=== PATIENT | male | born 1965 | race Caucasian/White ===

== ENCOUNTER 2023-08-21 11:47 | Observation (INO) | payer OTHER, SELFPAY ==
[2023-08-21] VITALS (7 sets, daily range): BP systolic 127–164; BP diastolic 89–121; PULSE 52–81; RESP 16–20; TEMP 36.1–37.1; O2SAT 91–100; BMI 23.6; BMI 23.3
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
--- NOTE | 2023-08-21 12:38 | CM.ED ---
Social Work SW consulted regarding possible SNF placement. SW introduced self and role to patient and sister, Jodee, present in the room. Pt is only oriented to self and could not provide information to SW. Pt's sister reports he was just discharged from [facility] after a week. She reports [facility] did recommend SNF but family thought they could care for him with home health. [facility] told family they could do 2 days a week of PT and recommended that he needed a higher level of care. Sister reports extensive testing was done with no significant findings. Pt reportedly had tested positive for arsenic in 2020 after a brief marriage, it is suspected that he has arsenic poisoning which is causing his decline. Pt has not been mobile at home and has difficulty sitting up. Sister showed a video of patient from 2 weeks ago in which patient was fully functional and reportedly was walking a mile a day at that time. 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 Pt's insurance will likely require a precert for SNF placement. Physician is working on getting patient's records sent from [facility] to avoid unnecessary testing. Pt's sister would like patient to receive as much therapy as possibly and is interested in the Rehab Unit at [facility]. SW will provide a SNF list according to patient's insurance and geographic location in case more choices are needed. SW left a voicemail for Rehab intake to refer and discuss availability. Pt may need some additional therapy notes depending on [facility] records. SW to follow pt for discharge needs. Liliam Vinson SUPERVISOR ASSEMBLY, EVENT REPRESENTATIVE
--- NOTE | 2023-08-21 14:51 | ED.RN ---
clem and waiting on records from [place], unable to admitt to skilled facility without unless we do workup here, which family initally wanted to avoid putting him through if possible. discussed with family that placement would not happen today d/t lack of documentation for facilities to review since we have not recieved records from [place] at this time. family agreeable to do basic workup and have pt admitted so that he can get pt/ot evals and determine medically stable for prospective placement tomorrow. new orders recieved.
--- NOTE | 2023-08-21 15:25 | RAD_ITS ---
STUDY: X-RAY CHEST REASON FOR EXAM: Male, 58 years old. Cough TECHNIQUE: Single AP portable view of the chest. COMPARISON: None. FINDINGS: The lungs are clear and expanded. There is no demonstrated pleural abnormality. Normal size heart. Normal mediastinum and lisa. Normal visualized pulmonary arteries. Normal visualized aortic arch and descending thoracic aorta. Normal visualized thoracic spine. There is degenerative osteoarthritis of the bilateral shoulders. There is no demonstrated abnormality of the visualized soft tissue structures of the upper abdomen. RAD/Chest 1 View (Portable) IMPRESSION: Normal x-ray examination of the chest. Electronically Signed: Tanner Lugo MD at 15:44 EST ,
[2023-08-21 15:57] LABS: Absolute Lymphocyte Count 1.63 X10^3/uL (0.83-4.51); Absolute Neutrophil Count 5.9 X10^3/uL (2.0-7.7); Basophil# 0.08 X10^3/uL; Basophil% 0.9 % (0-1); Eosinophil# 0.23 X10^3/uL; Eosinophils% 2.6 % (0-5); Hematocrit 47.6 % (40-54); Hemoglobin 15.4 g/dL (13.0-16.5); Lymphocyte # 1.63 X10^3/ul (0.83-4.51); Lymphocyte % 18.5 % (19-41); Mean Corp Hgb Conc 32.4 g/dL (32-36); Mean Corpuscular Hgb 27.9 pg (27.0-32.0); Mean Corpuscular Volume 86.4 fL (80-94); Mean Platelet Vol. 9.4 fl (6.2-12.0); Monocyte# 0.97 X10^3/uL; NRBC Flagged by Analyzer 0 % (0-5); Neutrophil # 5.85 X10^3/uL (2.7-7.7); Neutrophil % 66.5 % (47-70); Platelet Count 408 K/mm3 (150-450); RBC Distribution Width CV 12.4 % (11.6-14.6); RBC Distribution Width SD 39.3 fl (35.1-43.9); Red Blood Count 5.51 M/mm3 (4.6-6.2); White Blood Count 8.8 K/mm3 (4.4-11.0)
[2023-08-21 16:17] LABS: ALB/GLOB Ratio 0.9 RATIO (0.9-2.4); AST(SGOT) 22 U/L (15-37); Alanine Aminotransfer ALT/SGPT 25 U/L (16-61); Albumin, Serum 3.4 g/dL (3.2-5.0); Alkaline Phosphatase 120 U/L (45-117); Anion Gap 3 (5-15); BUN 15 mg/dL (7-18); BUN/Creat Ratio 14.9 RATIO (10-20); Calcium,Total 9.5 mg/dL (8.5-10.1); Chloride 105 mmol/L (98-107); Creatinine, Serum 1.01 mg/dL (0.70-1.30); EST Glomerular Filtration Rate 81 mL/min (>60); Est Glom Filt Rate - Afr Amer 98 mL/min (>60); Estimated Creatinine Clearance 88.57 ml/min; Globulin 3.9 g/dL (2.2-4.2); Glucose 102 mg/dL (74-106); Potassium 4.3 mmol/L (3.5-5.1); Protein, Total 7.3 g/dL (6.4-8.2); Sodium Level 139 mmol/L (136-145)
--- NOTE | 2023-08-21 16:47 | CM.ED ---
Social Work SW notified that [facility] called regarding a referral from [facility] and are coming to meet with family. Family met with hospice and is not interested in hospice, only palliative care at this time. SW is unsure what the recommendation/prognosis is from [facility]. [facility] was unable to fax records and notified medical staff that they cannot due to not being processed by medical records yet. Pt will need PT/OT evaluations to determine recommendation and then insurance precert. Pt's sister reports patient was very active less than 2 weeks ago and patient has a strong will to recover. SW will follow for needs and support as needed. Liliam Vinson VAMP WETTER, VICE PRESIDENT FOR INSTRUCTION
--- NOTE | 2023-08-21 17:10 | PCM.HP.STD ---
HPI - General General Date of Admission: 08/21/23 Date of Service: 08/21/23 Chief Complaint: Family unable to take care of patient at home HPI Narrative ROMAIN MCGRATH, is a 58 M who presented to the emergency department at [facility] on 08/21/2023 due to the family being unable to take care of the patient at home. Patient was recently discharged from [facility] last night. The patient has a history of arsenic poisoning and has had significant functional and cognitive decline since that point in time. He underwent extensive evaluation while hospitalized there related to his functional decline without any significant findings and was seen by hospice and palliative care. Patient was offered hospice however patient and family declined and wanted to continue with palliative care. He was discharged home but family got him home and he is requiring significant amount of [id number] care which they are unable to provide at this time so they brought him to the emergency department for placement. Vital signs on presentation demonstrated temperature of 97, heart rate 78, blood pressure initially was 160/101 with repeat at 120/92, respiratory rate is 18 oxygen saturations are 100% on room air. His CBC is unremarkable. His chemistry panel is unremarkable except for mild elevation in total bilirubin at 1.4. Baseline bilirubin is unknown. Chest x-ray has no acute findings. Extensive discussion with family. 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 He had a fall and ended up admitted to [facility] and became quite debilitated. They felt they could take care of him going home but unfortunately nursing has signed off and they are not able to supply any aids. He has not yet been evaluated by physical or occupational therapy however they would like him to get daily therapy at least 5 days a week. They have talked to an outpatient facility and if they could get him there they would be willing to do physical therapy 5 days a week but family does not feel they can even get him there at this time. He was cleared for a soft thin liquid diet by speech therapy prior to discharge. Their initial goals were to try to get him into acute rehab but after discussion but after explaining he would need to tolerate 3 hours of physical/occupational/speech therapy daily and they did not feel he would be able to tolerate this. We then talked about skilled facility placement and they would like to pursue this if possible however they are aware that his insurance company may decline this depending on his participation and capability for improvement after they review the information. They would like to pursue possible SNF placement so we will admit him as observation as there are no acute medical issues. They would also like a second opinion from neurology so we will have them consulted and try to obtain records from [facility] however we have thus far been unsuccessful. [facility] Medical History (Updated 08/21/23 @ 17:[address] Kira Bennett, ) Arsenic encephalopathy HTN (hypertension) no significant family history unable to obtain Social History (Updated 08/21/23 @ 17:[address] Kira Bennett, ) household members: family housing: house Smoking Status: Never smoker alcohol intake: never substance use type: does not use ROS Review of Systems ROS Unobtainable: due to mental condition Vital Signs Vital Signs Vital Signs: 08/21/23 11:49 08/21/23 14:27 08/21/23 16:52 Temperature 97 F L Temperature Source Temporal Pulse Rate 78 79 52 L Respiratory Rate 18 16 18 Blood Pressure 160/101 H 129/92 H 134/89 H Blood Pressure Mean 120 104 104 Pulse Ox 100 99 98 Oxygen Delivery Method Room Air Room Air Room Air Weight Weight: 79.1 kg Body Mass Index (BMI) 23.6 Physical Exam Const alert, no apparent distress, average body habitus and well nourished; Negative for healthy appearing Constitutional Narrative: Middle-aged, white male, who is able to interact some but not consistently, does follow commands but unable to vocalize consistently any complaints or issues, appears nontoxic, family at bedside General Appearance: cooperative HEENT normocephalic, head/scalp atraumatic and moist oral mucous membranes HEENT Narrative: Mallampati 2, no thrush Resp normal respiratory effort, no retractions, no use of accessory muscles and clear to auscultation bilaterally Auscultation: Negative for rales, rhonchi or wheezes Cardio regular rate, regular rhythm, S1 normal heart sound, S2 normal heart sound, no murmurs, no rub, no gallops and no clicks GI normal to inspection, nondistended, normoactive bowel sounds, soft to palpation and non-tender Extremity no clubbing, cyanosis or edema Extremity Narrative: Pedal pulses are 2+, radial pulses are 2+ Neuro moves all extremities Neuro Narrative: Patient is not able to consistently vocalize any meaningful interaction, intermittently follows commands, able to move all extremities, does appear to have some rigidity in his lower extremities however I am not clear if this is effort related or if he has increased tone, reflexes are hyperactive bilateral lower extremities and upper extremities Sensorium / Orientation: awake and alert Speech: Negative for speech normal Psych Psych Narrative: Affect is flat and difficult to obtain mood due to limited capabilities of interaction Results Lab / Micro Data 08/21/23 15:46 08/21/23 15:46 Labs: Laboratory Results - last 24 hr 08/21/23 15:46: WBC 8.8, RBC 5.51, Hgb 15.4, Hct 47.6, MCV 86.4, MCH 27.9, MCHC 32.4, RDW Std Deviation 39.3, RDW Coeff of Cari 12.4, Plt Count 408, MPV 9.4, Immature Gran % (Auto) 0.500, Neut % (Auto) 66.5, Lymph % (Auto) 18.5 L, [place] % (Auto) 11.0 H, Eos % (Auto) 2.6, Baso % (Auto) 0.9, Absolute Neuts (auto) 5.9, Absolute Lymphs (auto) 1.63, Nucleated RBC % 0, Sodium 139, Potassium 4.3, Chloride 105, Carbon Dioxide 31.0, Anion Gap 3 L, BUN 15, Creatinine 1.01, Estim Creat Clear Calc 88.57, Est GFR (MDRD) Af Amer 98, Est GFR (MDRD) Non-Af 81, BUN/Creatinine Ratio 14.9, Glucose 102, Calcium 9.5, Total Bilirubin 1.40 H, AST 22, ALT 25, Alkaline Phosphatase 120 H, Total Protein 7.3, Albumin 3.4, Globulin 3.9, Albumin/Globulin Ratio 0.9 Imaging Radiology Impression Chest X-Ray 08/21/23 15:25 IMPRESSION: Normal x-ray examination of the chest. Electronically Signed: Tanner Lugo MD at 15:44 EST , Assessment & Plan Assessment/Plan (1) Failure to thrive: (2) Debility: (3) Encephalopathy: (4) Dysphagia: PLAN: Plan Acute on chronic encephalopathy -Acute etiology is not known patient has history of arsenic poisoning -Recent extensive hospitalization at [facility] for the above -Extensive testing and consultations were performed and awaiting requested information including neuro consultations and imaging/EEG -Heavy metal panel at [facility] is still pending -Consult [facility] teleneurology Dysphagia -Speech therapy was following at [facility] -Was on a mechanical soft thin liquid diet at discharge -Had modified barium swallow prior to discharge -Will continue modified diet and consult speech therapy Failure to thrive/debility/fall -PT/OT consultation -Case management/social work consultation -Family is well aware that he will not qualify for inpatient rehab services but would like to pursue SNF -They are aware that he may not qualify for SNF based on his level of participation with physical and Occupational Therapy here and insurance review History of hypertension -Patient is not on any current medications -Monitor blood pressure Onychomycosis -Hold terbinafine and restart at discharge DVT prophylaxis -Lovenox subcu daily CODE STATUS -Full code is verified on admission Charges/Coding Visit Charges Inpatient E&M: 75125 Init Hosp L2
--- NOTE | 2023-08-21 20:41 | CM.ED ---
Social Work Patient's sister, Jodee Sagastume, is HCPOA and will bring advance directive documents when able. Liliam Vinson WATER MECHANIC, CLERK TELEVISION PRODUCTION
[2023-08-21] MEDS: MELATONIN 3 MG TABLET PO (22:45)
[2023-08-22] MEDS: DiphenhydrAMINE 50 MG/ML Syringe 25 MG IV (00:27)
[2023-08-22] MEDS: 0.9% Saline Lock 10 ML Syringe IV (00:27)
[2023-08-22 00:38] VITALS: BP 136/93; PULSE 87; RESP 16; TEMP 36.8; O2SAT 100
[2023-08-22 06:30] VITALS: BP 137/96; PULSE 88; RESP 16; TEMP 36.6; O2SAT 98
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
[2023-08-22] MEDS: Enoxaparin 40 MG/0.4 ML Syringe SC (10:23)
--- NOTE | 2023-08-22 12:30 | CASEMGMT ---
Addendum entered by Kait Young 08/22/23 17:16: Social Work Pt has been denied for Inpatient Rehab. Referral to TCU at 1440. Determination not made at this time. Referral sent to [facility]. Not in network with pt insurance. A new SNF list printed to indicate in network facilities from the [facility] [facility] and given to pt's caregiver who is in the room. Caregiver will give list to pt's sister and request that additional choices be made. SW to follow up tomorrow. Plan: SNF, pending choice and referrals. RONNELL Bo Original Note: Social Work SW?to room to meet with patient and sister Jodee Sagastume for initial transition planning/care coordination?assessment.?SW?introduced self and role at [facility].? Pt sitting in chair and alert but not responding to SW questions. Assessment completed with pt's sister.? Care providers, pharmacy, and demographics verified. PCP: Dr. Gavin Diggs Specialists: Alex - neurologist Preferred Pharmacy: [facility] Insurance: MMO Prescription Benefit:? yes Living Will/HPOA:?yes, pt has a HCPOA on file naming his sister Jodee Sagastume. Pt has a living will and sister agreeable to bring this in. LNOK: sister Jodee Sagastume Living Arrangements: Pt lives in a two story duplex with a first floor setup. 4 steps to get into the home with no ramp. Pt has been requiring help with ADLs and IADLs and sister has been assisting. Sister lives in an adjoining apartment. Pt also has a roller printing supervisor that stays with him 27/01. Transportation:?sister DME: ? hospital bed, walker, shower chair. Sister reports a transport chair has been ordered but has not been delivered PLAN: Pt's sister has been caring for pt since May 2021. Pt was diagnosed with dementia in 2019. Pt was in [facility] for 8 days prior to admission and sister reports prior to this pt was A&O x1 and could have a conversation but with great effort. Since hospitalization, pt is not responding. Pts sister states ultimate goal is to get pt home and she will care for him and she would like outpt therapy at [facility]. Sister is realistic at this time that pt cannot return home and need rehabilitation. Pt was given a list of options in the ED. First preference is Inpatient Rehab, second is TCU and third is [facility]. Referral made to Inpatient Rehab. SW will await determination. RONNELL Bo
[2023-08-22 14:32] VITALS: BP 129/97; PULSE 98; RESP 18; TEMP 36.6; O2SAT 95
--- NOTE | 2023-08-22 15:31 | CASEMGMT ---
Discharge Planning Referral sent to [facility] via [facility]. Arcelia Ren, Discharge Planning Asst.
--- NOTE | 2023-08-22 17:00 | CASEMGMT ---
Social Work Pt's sister provided a copy of HCPOA naming herself as pt's decision maker. Copy on pt chart. Pt has completed a living will. SW requested sister also bring this document in. RONNELL Bo
[2023-08-22 20:00] VITALS: O2SAT 95
[2023-08-22 21:12] VITALS: PULSE 85; RESP 18; TEMP 36.8; O2SAT 95
[2023-08-22] MEDS: Acetaminophen 325 MG Tablet 650 MG PO (21:53)
[2023-08-22] MEDS: MELATONIN 3 MG TABLET PO (21:53)
[2023-08-22 21:59] VITALS: BP 163/119
[2023-08-23] MEDS: Ibuprofen 600 MG Tablet PO ×3 (03:05→22:19)
[2023-08-23 03:14] VITALS: BP 145/98; PULSE 90; RESP 16; TEMP 36.6; O2SAT 96
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
[2023-08-23 07:22] VITALS: O2SAT 95
[2023-08-23 10:18] VITALS: BP 129/84; PULSE 61; RESP 18; TEMP 35.9; O2SAT 93
[2023-08-23] MEDS: 0.9% Saline Lock 10 ML Syringe IV ×2 (10:34→18:45)
[2023-08-23] MEDS: 0.9% Normal Saline (1000mL) 1,000 ML 150 ML IV (10:34)
[2023-08-23] MEDS: Enoxaparin 40 MG/0.4 ML Syringe SC (10:35)
[2023-08-23] MEDS: Ensure Plus High Protein 120 ML LIQUID PO ×2 (13:32→18:45)
[2023-08-23 14:35] VITALS: BP 133/99; PULSE 71; RESP 16; TEMP 36.3; O2SAT 100
--- NOTE | 2023-08-23 15:27 | CASEMGMT ---
Addendum entered by Xenia Carpenter 08/23/23 15:55: Social Work SW sent a referral to [facility] via [facility]. ALEXI Woo Original Note: Social Work Pt's sister Jodee here, SW spoke w/her about SNF choices, as their second choice[facility] is not in network. [facility] is their second choice if TCU cannot take pt. SW explained we will make referral and follow up Friday. Jodee also brought pt's LW, SW made a copy and placed it on the chart. ALEXI Woo
[2023-08-23 20:04] VITALS: BP 119/83; PULSE 71; RESP 18; TEMP 36.6; O2SAT 95
[2023-08-24 02:06] VITALS: BP 140/89; PULSE 89; RESP 18; TEMP 36.7; O2SAT 94
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
[2023-08-24] MEDS: 0.9% Normal Saline (1000mL) 1,000 ML 150 ML IV (09:47)
[2023-08-24] MEDS: Ensure Plus High Protein 120 ML LIQUID PO ×2 (09:47→17:57)
[2023-08-24] MEDS: Enoxaparin 40 MG/0.4 ML Syringe SC (09:48)
[2023-08-24] MEDS: 0.9% Saline Lock 10 ML Syringe IV ×2 (09:48→17:55)
[2023-08-24 09:54] VITALS: BP 146/97; PULSE 88; RESP 18; TEMP 36.5; O2SAT 99
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
[2023-08-24 17:30] VITALS: BP 136/93; PULSE 84; RESP 18; TEMP 36.8; O2SAT 98
[2023-08-24] MEDS: Senna/Docusate Sodium 1 Tablet 2 TABLET PO (18:05)
[2023-08-24 21:37] VITALS: BP 136/94; PULSE 70; RESP 18; TEMP 36.6; O2SAT 98
[2023-08-24] MEDS: Ibuprofen 600 MG Tablet PO (21:40)
[2023-08-25] MEDS: hydrOXYzine 50 MG/ML Vial 100 MG IM (02:17)
[2023-08-25 03:33] VITALS: BP 109/72; PULSE 66; RESP 18; TEMP 36.5; O2SAT 98
[2023-08-25 11:21] VITALS: BP 139/95; PULSE 91; RESP 18; TEMP 36.4; O2SAT 100
--- NOTE | 2023-08-25 11:38 | CASEMGMT ---
Addendum entered by Arcelia Ren 08/25/23 12:36: [facility] declined referral. Arcelia Ren, Discharge Planning Asst. Original Note: Discharge Planning Referral sent via [facility] to [facility]. Arcelia Ren, Discharge Planning Asst.
--- NOTE | 2023-08-25 12:38 | CASEMGMT ---
Discharge Planning Referral sent via [facility]Port to [facility]. Arcelia Ren, Discharge Planning Asst.
[2023-08-25] MEDS: Enoxaparin 40 MG/0.4 ML Syringe SC (13:24)
[2023-08-25] MEDS: Ibuprofen 600 MG Tablet PO (13:32)
[2023-08-25] MEDS: 0.9% Normal Saline (1000mL) 1,000 ML 75 ML IV (14:10)
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
[2023-08-25 16:00] VITALS: BP 149/95; PULSE 82; RESP 18; TEMP 36.9; O2SAT 97
[2023-08-25] MEDS: Thiamine Hydrochloride 100 MG Tablet PO (16:15)
[2023-08-25 17:04] LABS: Vitamin B12 465 pg/mL (211-911)
--- NOTE | 2023-08-25 17:30 | CASEMGMT ---
Social Work - Discharge Planning Spoke with Riri in [facility] and patient is declined for admission. Received notice from [facility] and patient declined based on not the right level of care. Met with patient's sister to update. Reviewed SNF list. Next choices are [facility] and [facility]. Sister reports has been in conversations with Palliative Care as a supplement to patient's care. Sister reports has been thinking about having patient back at home, as this would make patient happier, but concerned whether would have enough care. Broached hospice care for patient, though reinforced that hospice at home does not provide around the clock care. Offered to discuss a hospice consult with provider, if sister wants to hear directly from hospice on what can provide for patient. Sister reports to have a 24 hour caregiver hired for patient, but sister has some frustrations with this arrangement. After talking through various options, the sister reports desire to continue with trying to go with skilled care and will continue to talk patient's needs over with family. Sister asks for any resources for wheelchair van, and for private duty care. Updated Discharge strategic planning director to new SNF choices. Referrals made. [facility] declined patient. [facility] pending. Met with sister, provided information on [place] transportation, as well as a private duty list. Updated on referrals made to SNF's today. In light of multiple denials so far, sister okay with referrals being sent to [facility], and to [facility]. Sister expresses concern as to if all facilities on list deny the patient. Emotional support offered to the sister. Educated that facility search could be extended beyond 20 miles of geographical region. Plan: Working towards SNF. Referral pending at [facility]; Referrals to be sent to [facility] and [facility]. Social Work following. -AMANDA Espinoza
[2023-08-25 20:53] VITALS: BP 143/96; PULSE 93; RESP 18; TEMP 36.6; O2SAT 96
[2023-08-26] MEDS: 0.9% Normal Saline (1000mL) 1,000 ML 75 ML IV ×2 (03:16→16:12)
[2023-08-26 03:45] VITALS: BP 134/93; PULSE 78; RESP 16; TEMP 36.8; O2SAT 96
[2023-08-26] MEDS: Ibuprofen 600 MG Tablet PO (03:49)
[2023-08-26 07:52] LABS: Absolute Lymphocyte Count 1.63 X10^3/uL (0.83-4.51); Absolute Neutrophil Count 3.9 X10^3/uL (2.0-7.7); Basophil# 0.06 X10^3/uL; Basophil% 0.9 % (0-1); Eosinophil# 0.31 X10^3/uL; Eosinophils% 4.7 % (0-5); Hematocrit 43.8 % (40-54); Hemoglobin 14.1 g/dL (13.0-16.5); Lymphocyte # 1.63 X10^3/ul (0.83-4.51); Lymphocyte % 24.7 % (19-41); Mean Corp Hgb Conc 32.2 g/dL (32-36); Mean Corpuscular Hgb 27.6 pg (27.0-32.0); Mean Corpuscular Volume 85.7 fL (80-94); Mean Platelet Vol. 9.6 fl (6.2-12.0); Monocyte# 0.66 X10^3/uL; NRBC Flagged by Analyzer 0 % (0-5); Neutrophil # 3.91 X10^3/uL (2.7-7.7); Neutrophil % 59.4 % (47-70); Platelet Count 459 K/mm3 (150-450); RBC Distribution Width CV 12.1 % (11.6-14.6); RBC Distribution Width SD 38.2 fl (35.1-43.9); Red Blood Count 5.11 M/mm3 (4.6-6.2); White Blood Count 6.6 K/mm3 (4.4-11.0)
[2023-08-26 08:18] LABS: Anion Gap 4 (5-15); BUN 11 mg/dL (7-18); BUN/Creat Ratio 14.9 RATIO (10-20); Calcium,Total 9.1 mg/dL (8.5-10.1); Chloride 110 mmol/L (98-107); Creatinine, Serum 0.74 mg/dL (0.70-1.30); EST Glomerular Filtration Rate 116 mL/min (>60); Est Glom Filt Rate - Afr Amer 140 mL/min (>60); Estimated Creatinine Clearance 120.89 ml/min; Glucose 97 mg/dL (74-106); Sodium Level 139 mmol/L (136-145)
--- NOTE | 2023-08-26 08:51 | CASEMGMT ---
Discharge Planning Referral sent via [facility] to [facility] chandler [facility] and [facility]. Arcelia Ren, Discharge Planning Asst.
[2023-08-26 09:30] VITALS: BP 135/90; PULSE 73; RESP 16; TEMP 36.6; O2SAT 98
--- NOTE | 2023-08-26 09:53 | CASEMGMT ---
Addendum entered by Xenia Carpenter 08/26/23 14:44: Social Work CC did decline pt. SW to let pt's sister know when she calls in after her visit to [facility]. ALEXI Woo Addendum entered by Xenia Carpenter 08/26/23 14:43: Social Work SW spoke w/pt's sister, she is going to [facility] to see what she thinks, is to let us know. [facility] came to see pt, referral is pending. ALEXI Woo Addendum entered by Xenia Carpenter 08/26/23 10:34: Social Work PAS/RR stated, will completed it once we know the facility where pt will be going. ALEXI Woo Original Note: Social Work SW spoke w/pt's sister Jodee who is here, she called pt's other sister on the phone. SW let them know that [facility] is going to come see the pt in person, and [facility] did accept pt. Pt's sister would like to be here when [facility] comes to see pt. She is going to look into both facilities to see which they would prefer. She is also waiting for speech to come see pt and wondered when she may be in to see pt. SW also spoke w/pt's sister about the PAS/RR and pt's history of mental health. She states pt has had some anxiety but never took medication for it. He has never been in a psychiatric facility. Pt's sister states pt does not have any other psychiatric diagnoses. SW did explain that given pt's confusion, it may trigger a further review with the PAS/RR, which may delay pt's discharge. Pt's sister states understanding. SW did speak w/speech, they will be here this afternoon. carla Paniagua/rudy assistant restaurant general manager spoke w/[facility] and they will call pt's sister, but likely will be here this afternoon. SW let pt's sister Jodee know this. SW will continue to follow, awaiting CC visit, and then family's decision on placement. SW will submit the PAS/RR once we have a facility. ALEXI Woo
[2023-08-26] MEDS: Ensure Plus High Protein 120 ML LIQUID PO (10:05)
[2023-08-26] MEDS: Thiamine Hydrochloride 100 MG Tablet PO (10:06)
[2023-08-26] MEDS: Enoxaparin 40 MG/0.4 ML Syringe SC (10:06)
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
[2023-08-26 14:47] VITALS: BP 126/102; PULSE 86; RESP 16; TEMP 36.8; O2SAT 99
--- NOTE | 2023-08-26 15:43 | CASEMGMT ---
Discharge Planning [facility] declined patient. [facility]. Family toured and that is their foc. [facility] updated and asked to start precert. [facility] also updated. Arcelia Ren, Discharge Planning Asst.
--- NOTE | 2023-08-26 16:30 | CASEMGMT ---
Social Work - discharge planning update Spoke with patient's sister and [facility], Jodee Duke. Updated that [facility] declined patient after on sit visit, and that [facility] would like to do an onsite visit. Jodee reports toured [facility] and agreeable for patient to go to [facility]; forego [facility] doing an onsite. Updated Arcelia, Discharge Lawyers and asked for [facility] to start precert process. Submitted PASRR screen in the [facility] system. Patient tripped level II screen for Department of Developmental Disabilities, related to encephalopathy diagnosis. Patient cannot be discharged until further review has been completed. Uploaded ADL and IADL information into the [facility] system, to help support functional need for 24 hour care and fci placement. Plan: [facility], pending insurance authorization and PASRR screen results obtained. Social work actively following. -AMANDA Espinoza
[2023-08-26 19:50] VITALS: BP 140/84; PULSE 86; RESP 16; TEMP 37.1; O2SAT 97
[2023-08-27 02:30] VITALS: BP 121/80; PULSE 83; RESP 20; TEMP 36.8; O2SAT 97
[2023-08-27] MEDS: 0.9% Normal Saline (1000mL) 1,000 ML 75 ML IV ×2 (05:34→18:17)
[2023-08-27] MEDS: Thiamine Hydrochloride 100 MG Tablet PO (10:54)
[2023-08-27] MEDS: Enoxaparin 40 MG/0.4 ML Syringe SC (10:54)
[2023-08-27] MEDS: Menthol/Lanolin/Calamine/Znox 113 GM Tube 1 APPLIC TOPICAL ×2 (10:54→20:57)
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
--- NOTE | 2023-08-27 15:26 | CASEMGMT ---
Discharge Planning [employer] declined skilled auth. SW updated. Arcelia Ren, Discharge Planning Asst.
--- NOTE | 2023-08-27 16:02 | CASEMGMT ---
Social Work SW received message that insurance denied request for SNF authorization. SW placed phone call to pt's sister Jodee and informed. [facility] is willing to take pt private pay. Pt's sister inquiring about cost. SW will obtain private pay costs from [facility] and notify Jodee. Jodee to consider options over night and EVELYN will followup in the morning. RONNELL Bo
[2023-08-27] MEDS: Ensure Plus High Protein 120 ML LIQUID PO (18:16)
[2023-08-27 20:54] VITALS: PULSE 85; RESP 18; TEMP 36.6; O2SAT 97
[2023-08-28 02:11] VITALS: BP 123/90; PULSE 71; RESP 16; TEMP 36.5; O2SAT 97
--- NOTE | 2023-08-28 03:58 | NURSING ---
Pt was restless 08/27 evening. Tried to take BP, but he was shaky and having tremors. Unable for machine to sampler pickup BP. Sister was holding his arm down but he was clearly agitated. Attempted later in shift and was able to get BP.
[2023-08-28] MEDS: 0.9% Normal Saline (1000mL) 1,000 ML 75 ML IV ×2 (06:21→20:03)
[2023-08-28] MEDS: Thiamine Hydrochloride 100 MG Tablet PO (09:27)
[2023-08-28] MEDS: Ensure Plus High Protein 120 ML LIQUID PO ×2 (09:27→12:08)
[2023-08-28] MEDS: Enoxaparin 40 MG/0.4 ML Syringe SC (09:27)
[2023-08-28] MEDS: Menthol/Lanolin/Calamine/Znox 113 GM Tube 1 APPLIC TOPICAL ×2 (09:28→20:03)
[2023-08-28 09:34] VITALS: BP 117/90; PULSE 75; RESP 18; TEMP 36.2; O2SAT 99
[2023-08-28] MEDS: Ibuprofen 600 MG Tablet PO (09:40)
--- NOTE | 2023-08-28 10:28 | CASEMGMT ---
Addendum entered by Kait Young 08/28/23 15:12: Social Work SW received phone call from pt's dgt Jodee who states she and family have discussed pt's discharge plan at length and are now considering taking the pt home instead of placement at [facility]. Jodee will attempt to find additional aids to help at home and if she can secure this, she will take pt home. Jodee to follow up with pt in the morning with decision. RONNELL Bo Addendum entered by Kait Young 08/28/23 11:35: Social Work EVELYN spoke with pt's dgt Jodee who confirms desire for placement at [facility], private pay. SW updated [facility]. Will need to await Level II determination by ANDUJAR prior to discharge. Plan: [facility], pending Level II ANDUJAR determination RONNELL Bo Original Note: Social Work EVELYN met with pt's sister Jodee to continue discussion of discharge plan. EVELYN reiterated that insurance has denied skilled stay. SW provided private pay rates at [facility]. Jodee considering taking pt home vs private pay at SNF. Jodee inquired about getting therapy at the facility. Phone call to Maria E at [facility] who states pt can private pay for therapy at $90 per session per day. EVELYN placed phone call to insurance company. No other SNF benefits for therapy are available to pt save the Skilled stay which was denied. Pt does have home health PT/OT coverage of 100% after deductible with max of 100 visits during calender year and out patient PT/OT coverage of 100% after deductible with max of 40 visits. EVELYN met with pt and updated on this information. Jodee states she is leaning toward placement at [facility] private pay for room and board and is also willing to pay for therapy sessions. Jodee would like Palliative services through [facility]. Jodee would like time to speak with additional family members and will call this EVELYN back with decision. SW check [facility] portal and pt's evaluation with the [place] Department of Developmental Disability is still pending. Pt cannot discharge to SNF until Andujar level 2 evaluation is complete. RONNELL Bo
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
--- NOTE | 2023-08-28 11:45 | CASEMGMT ---
Discharge Planning Updates sent via [facility] to [facility]. Arcelia Ren, Discharge Planning Asst.
--- NOTE | 2023-08-28 14:34 | CASEMGMT ---
Discharge Planning A list of?HH providers including quality and resource use data and consistent with the patient's preferred geographic region, medical needs, and insurance network was created in [employer]Port Guide.? This list was provided to the RN GERTRUDE. Arcelia Ren, Discharge Planning Asst.
[2023-08-28 14:46] VITALS: BP 122/62; PULSE 64; RESP 18; TEMP 36.9; O2SAT 98
[2023-08-28 20:09] VITALS: BP 131/93; PULSE 84; RESP 16; TEMP 36.8; O2SAT 95
[2023-08-28] MEDS: DiphenhydrAMINE 50 MG/ML Syringe 25 MG IV ×2 (20:57→23:08)
--- NOTE | 2023-08-28 23:12 | NURSING ---
sister of patient requested 12.5mg of Benadryl to help patient calm down and sleep. It seemed to help for a little bit, but patient woke up and became agitated again. Legs over the side of the bed, mumbling words, and moving arms. Sister requested other half of Benadryl.
[2023-08-29 05:25] VITALS: PULSE 73; RESP 18; TEMP 35.9; O2SAT 96
--- NOTE | 2023-08-29 09:41 | CASEMGMT ---
Social Work SW met with pt's daughter Jodee to continue discharge discussion. Jodee has decided to take pt home. She is working with multiple agencies to secure private duty aids at home. She has spoke with [employer] and secured transportation to appointments once pt is home. Jodee is requesting a referral to [facility] and Jodee will pursue home health therapy with hopes to eventually take pt to outpatient at [facility]. Jodee states that after trying, if therapy option is not helpful to pt, she will reach out to hospice through the Palliative team. Pt has a hospital bed and ramp into the home. Pt will need a nela lift and transport wheelchair (regular wheelchair will not fit through doorways of pt's home). Emotional support provided to Jodee as pt's situation and discussed. [facility] notified that pt will not be coming to facility. RNCM updated and to followup for dc planning. RONNELL Bo
[2023-08-29] MEDS: 0.9% Normal Saline (1000mL) 1,000 ML 75 ML IV ×2 (09:46→22:54)
[2023-08-29 10:19] VITALS: BP 136/94; PULSE 61; RESP 15; TEMP 35.6; O2SAT 100
--- NOTE | 2023-08-29 10:21 | CASEMGMT ---
Addendum entered by Hyacinth Villafana 08/29/23 15:35: Attempted to speak w/ pts sister Jodee to let her know w/c size was confirmed at 19inches. No answer. VM left. Hyacinth UGARTE, RN, CCM Addendum entered by Hyacinth Villafana 08/29/23 13:22: JERMAINE LOREDO spoke with sister. aware no accepting C agencies at this time. reports that she is working on coordinating private duty caregivers and multiple will be out on Friday to finalize arrangements. also reports that she is working with [employer] to coordinate transportation to [facility]. Hyacinth UGARTE, RN, CCM Addendum entered by Hyacinth Villafana 08/29/23 13:06: RX for DME and clinical documentation completed and sent to [facility]. Response received from [facility] that they are unable to accept. JERMAINE LOREDO unable to find an accepting [facility] agency for pt. Hyacinth UGARTE, RN, CCM Addendum entered by Hyacinth Villafana 08/29/23 11:51: [facility] unable to accept at this time. Awaiting response from [facility]. All other agencies have declined. Hyacinth UGARTE, RN, CCM Addendum entered by Hyacinth Villafana 08/29/23 11:02: Palliative care order received and sent to [facility]. Awaiting response on HHC acceptance from [facility] and [facility]. [facility], [facility] [place], [facility], and [facility] have all declined the pt at this time. Hyaicnth UGARTE, RN, CCM Original Note: JERMAINE LOREDO in to see pt sisters concerning DC planning home. Provided with HH list, sister requesting a referral to be sent to all 7 in network HH agencies to see who has available services in their area, as is also requesting an aide if possible. Sister agreeable to [facility] for DME as they are the only provider that is able to obtain the equipment at this time, and it will be available Friday. The other local providers are able to provide the equipment in 7-10 days. reports that they do have a temporary ramp. Hyacinth UGARTE, RN, CCM
[2023-08-29] MEDS: Ibuprofen 600 MG Tablet PO (10:42)
[2023-08-29] MEDS: Thiamine Hydrochloride 100 MG Tablet PO (10:46)
[2023-08-29] MEDS: Enoxaparin 40 MG/0.4 ML Syringe SC (10:47)
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
[2023-08-29] MEDS: Menthol/Lanolin/Calamine/Znox 113 GM Tube 1 APPLIC TOPICAL ×2 (11:18→20:25)
[2023-08-29 11:48] LABS: Absolute Lymphocyte Count 1.65 X10^3/uL (0.83-4.51); Absolute Neutrophil Count 4.3 X10^3/uL (2.0-7.7); Basophil# 0.06 X10^3/uL; Basophil% 0.9 % (0-1); Eosinophil# 0.36 X10^3/uL; Eosinophils% 5.2 % (0-5); Hematocrit 42.7 % (40-54); Hemoglobin 14.3 g/dL (13.0-16.5); Lymphocyte # 1.65 X10^3/ul (0.83-4.51); Lymphocyte % 23.6 % (19-41); Mean Corp Hgb Conc 33.5 g/dL (32-36); Mean Corpuscular Hgb 28.5 pg (27.0-32.0); Mean Corpuscular Volume 85.2 fL (80-94); Mean Platelet Vol. 9.3 fl (6.2-12.0); Monocyte# 0.57 X10^3/uL; Monocyte% 8.2 % (0-10); NRBC Flagged by Analyzer 0 % (0-5); Neutrophil # 4.33 X10^3/uL (2.7-7.7); Neutrophil % 61.8 % (47-70); Platelet Count 419 K/mm3 (150-450); RBC Distribution Width CV 12.4 % (11.6-14.6); RBC Distribution Width SD 38.5 fl (35.1-43.9); Red Blood Count 5.01 M/mm3 (4.6-6.2)
[2023-08-29] MEDS: Ensure Plus High Protein 120 ML LIQUID PO ×2 (12:07→18:12)
[2023-08-29 12:30] LABS: Anion Gap 1 (5-15); BUN 17 mg/dL (7-18); BUN/Creat Ratio 22.7 RATIO (10-20); Calcium,Total 8.7 mg/dL (8.5-10.1); Chloride 108 mmol/L (98-107); Creatinine, Serum 0.75 mg/dL (0.70-1.30); EST Glomerular Filtration Rate 114 mL/min (>60); Est Glom Filt Rate - Afr Amer 138 mL/min (>60); Estimated Creatinine Clearance 119.27 ml/min; Glucose 89 mg/dL (74-106); Sodium Level 138 mmol/L (136-145)
[2023-08-29 15:02] VITALS: BP 118/70; PULSE 54; RESP 16; TEMP 36.3; O2SAT 97
--- NOTE | 2023-08-29 17:13 | NURSING ---
This Rn verified student nurse EMR HTT documenation. Ariana Cardenas MSN, RN 08/29 1699
[2023-08-29 22:30] VITALS: BP 153/98; PULSE 60; RESP 16; TEMP 36.3; O2SAT 97
[2023-08-30] MEDS: DiphenhydrAMINE 50 MG/ML Syringe 25 MG IV ×3 (00:28→23:04)
[2023-08-30] MEDS: 0.9% Saline Lock 10 ML Syringe IV ×2 (00:28→19:46)
[2023-08-30 04:30] VITALS: BP 144/92; PULSE 71; RESP 17; TEMP 36.4; O2SAT 96
--- NOTE | 2023-08-30 11:12 | NURSING ---
This RN was unable to perform vital signs, morning assessment and give scheduled morning meds at this time due to patient agitation. This RN along with other staff provided emotional support. Will continue to monitor and try again at a later time.
[2023-08-30] MEDS: 0.9% Normal Saline (1000mL) 1,000 ML 75 ML IV ×2 (11:37→23:04)
[2023-08-30 14:40] VITALS: BP 118/100; PULSE 75; RESP 18; TEMP 36.6; O2SAT 99
[2023-08-30] MEDS: Enoxaparin 40 MG/0.4 ML Syringe SC (14:43)
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
[2023-08-30] MEDS: Menthol/Lanolin/Calamine/Znox 113 GM Tube 1 APPLIC TOPICAL (19:50)
--- NOTE | 2023-08-30 20:30 | NURSING ---
Sister in room asked that i dont get patient vitals at this time due to his aggitation.
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
[2023-08-30 23:32] VITALS: BP 142/104; PULSE 79; RESP 18; TEMP 37; O2SAT 96
[2023-08-31 09:25] VITALS: BP 134/99; PULSE 78; RESP 18; TEMP 36.4; O2SAT 100
[2023-08-31] MEDS: Ibuprofen 600 MG Tablet PO (09:25)
[2023-08-31] MEDS: Thiamine Hydrochloride 100 MG Tablet PO (09:25)
[2023-08-31] MEDS: Enoxaparin 40 MG/0.4 ML Syringe SC (09:25)
[2023-08-31] MEDS: Menthol/Lanolin/Calamine/Znox 113 GM Tube 1 APPLIC TOPICAL ×2 (09:26→19:40)
[2023-08-31] MEDS: 0.9% Normal Saline (1000mL) 1,000 ML 75 ML IV (12:06)
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
[2023-08-31 15:00] VITALS: BP 140/104; PULSE 88; RESP 18; TEMP 37.2; O2SAT 98
[2023-08-31] MEDS: DiphenhydrAMINE 50 MG/ML Syringe 25 MG IV (19:40)
[2023-08-31] MEDS: 0.9% Saline Lock 10 ML Syringe IV (19:40)
[2023-08-31 22:04] VITALS: BP 144/98; PULSE 82; RESP 18; TEMP 37; O2SAT 96
[2023-08-31] MEDS: MELATONIN 3 MG TABLET PO (22:36)
[2023-09-01] MEDS: 0.9% Normal Saline (1000mL) 1,000 ML 75 ML IV (03:52)
--- NOTE | 2023-09-01 04:00 | NURSING ---
Patient screaming as loud as he can with BP cuff on. Sister does not want bp repeated due to agitation.
[2023-09-01 08:30] VITALS: BP 162/92; PULSE 86; RESP 20; TEMP 36.4; O2SAT 97
--- NOTE | 2023-09-01 10:18 | CASEMGMT ---
Pt and pt sister updated that we were unable to obtain an accepting agency d/t insurance. The pt and pt sister are requesting an order for OP therapy and they state they will go to [facility] in [place] and will set up the appt themselves. Order signed by Dr. Marroquin at this time and the Rx given to the pt, copy placed in the chart. The pt sister states that she called [facility] regarding the [facility] lift and transportation W/C and they stated they will be delivering the equipment today. Pt and pt sister deny further needs at this time.
--- NOTE | 2023-09-01 10:38 | CASEMGMT ---
Social Work SW called the PAS/RR department to inquire how to revoke a PAS/RR request. She directed SW to the [facility] website, and to go under the help section, follow the instructions to revoke the request. She states pt can go home immediately, SW does not need to wait for a response. SW followed the instructions on the website and sent an email revoking the PAS/RR request. ALEXI Woo
--- NOTE | 2023-09-01 11:34 | PCM.DC ---
Discharge Instructions Diet Discharge Diet: No restrictions (Needs supervised feeding. TOTAL FEED, alternate bites/sips, meds crushed in ) Activity Discharge Activity: Return to Normal Activity Weight Bearing Status: Weight bearing as tolerated Dressing / Incision Call your doctor if you observe: Fever of 101 or Higher, Coldness, Increased Pain, Numbness or Tingling, Change in Color, Inability to urinate, Inability to have a bowel movement, Shortness of breath, Dizziness, Fainting spells, Swelling in the ankles, Chest pain, Prolonged hiccupping, Increased palpitations (irregular heartbeat) and Calf discomfort Follow Up Care When: IN 2 WEEKS Test Results: Test results from this visit will be discussed in further detail at your follow-up appointment, if applicable. Discharge Plan Admission Admit Date/Time: 08/21/23 17:07 Primary Reason for Your Visit: History of chronic cognitive decline, subacute encephalopathy. Attending Provider: Alfred Marroquin Primary Care Provider: Americo Diggs Consulting Providers: Arnulfo Plata; Eliecer De Gzuman; Yumi Auguste; Bela Penn; Radha Uribe; Mark Mendoza; Ade Chiang; Clemente Cabrera; Abram Martinez; Nadiya Miranda; Jerzy Ly; Tara Garza; Lui Casiano; Juice eNff; Derrick Villafana; Lasha Galindo; Earnest Cardoso; Gladys Bennett; Sara Escalante; Kira Bennett; Leon Flores Instructions Additional Instructions / Restrictions: Follow up with a dedicated specialist for his dementia. Options include: [facility] [phone], [facility] Brain Health and Memory (this may be lumped in with their general neurology department) [phone], [facility] Disorder [facility] [phone]. They may require referrals, if so, you will need to obtain that through his primary care physician. Discharge Orders/Prescriptions Prescriptions: New sennosides-docusate sodium [Stool Softener-Stimulant Laxat] 8.6-50 mg Tablet 2 tab PO BID PRN PRN (Reason: Constipation) Qty: 0 0RF Rx Instructions: Fhko-ovs-pgrflpv. thiamine HCl (vitamin B1) [Vitamin B-1] 100 mg Tablet 100 mg PO BREAKFAST 30 Days Qty: 30 3RF buspirone 10 mg tablet 10 mg PO BID PRN (Reason: Anxiety/agitation) Qty: 30 0RF Changed ibuprofen [Advil] 200 mg tablet 400 mg PO Q8H PRN (Reason: Musculoskeletal pain) 3 Days Qty: 0 0RF Rx Instructions: Jcbe-jha-ekdlldo. Held terbinafine HCl 250 mg tablet 250 mg PO DAILY Hold Instructions: Follow-up with PCP. Referrals / Follow Up: Americo Diggs MD [Primary Care Provider] - Disposition Disposition (needs filled in before D/C Order can be placed): Home Health Service
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
--- NOTE | 2023-09-01 12:01 | PCA ---
Arranged Cot transportation to home via [facility], p/u 1400
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
--- NOTE | 2023-09-01 15:55 | PHA.DC.MR.R ---
Pharmacy [place] Med Reconciliation Pharmacy Service has performed discharge medication reconciliation for this patient. Did not in house counsel, no family present when counseling attempted. The patient's discharge medication list was reviewed for discrepancies and discrepancies were resolved. Medications at Discharge Home Medications terbinafine HCl 250 mg tablet 250 mg PO DAILY 08/21/23 buspirone 10 mg tablet 10 mg PO BID PRN Anxiety/agitation #30 tabs 09/01/23 ibuprofen 200 mg tablet (Advil) 400 mg (2 x 200 mg) PO Q8H PRN Musculoskeletal pain 3 days #0 tabs 09/01/23 sennosides 8.6 mg-docusate sodium 50 mg tablet (Stool Softener-Stimulant Laxative) 2 tab PO BID PRN PRN Constipation #0 tabs 09/01/23 thiamine HCl (vitamin B1) 100 mg tablet (Vitamin B-1) 100 mg PO BREAKFAST 30 days #30 tabs 09/01/23
--- NOTE | 2023-09-02 11:05 | CASEMGMT ---
Social Work SW received an email back from the PAS/RR department stating SW needs to contact [facility] directly to have them revoke the PAS/RR request, since it already went for a further review. SW called Logan at [facility], he states he did already complete the further review, he states it is good for 6 months so if pt were to return or need placement from home, a further review will not be needed for 180 days. ALEXI Woo
== END 2023-09-01 13:00 | disposition home health service (06) ==
LOC: ED 12:24 → MS3 18:13
PROVIDERS: Nurse Practitioner; Admitting Provider Internal Medicine; Emergency Provider Emergency Medicine; PCP Family Medicine; Visit Provider Internal Medicine
DX: G93.40 Encephalopathy, unspecified (principal); R62.7 Adult failure to thrive; R13.10 Dysphagia, unspecified; I10 Essential (primary) hypertension; T56 Toxic effect of metals; R53.81 Other malaise; Z79.899 Other long term (current) drug therapy; B35.1 Tinea unguium
CPT/HCPCS: 36415; 71045; 80048; 80053; 82140; 82607; 82746; 84425; 85025; 92526; 92610; 96361; 96372; 96374; 96376; 97110; 97163; 97167; 97530; 97535; 97802; 99221; 99252; 99284; J7030; A4216; G0378; G0463